=== PATIENT | female | born 1935 | race Two or more races ===

== ENCOUNTER 2020-05-25 11:41 | Outpatient (CLI) | payer OTHER | END 2020-05-25 18:02 | disposition home or self-care (01) | LOC: PPH VACUNA 11:41 | PROVIDERS: ATTEND Emergency Medicine Pediatric Emergency Medicine | DX: Z23 Encounter for immunization (principal) ==

== ENCOUNTER 2020-06-15 10:12 | Outpatient (CLI) | payer OTHER | END 2020-06-15 15:00 | disposition home or self-care (01) | LOC: PPH VACUNA 10:12 | PROVIDERS: ATTEND Emergency Medicine Pediatric Emergency Medicine | DX: Z23 Encounter for immunization (principal) ==

== ENCOUNTER 2020-08-30 10:06 | Outpatient (CLI) | payer OTHER | END 2020-08-30 10:12 | disposition home or self-care (01) | LOC: NUCLEAR 10:06 | PROVIDERS: ATTEND Internal Medicine Cardiovascular Disease | DX: I25.10 Atherosclerotic heart disease of native coronary artery without angina pectoris (principal); R07.2 Precordial pain; R01.1 Cardiac murmur, unspecified; I11.9 Hypertensive heart disease without heart failure; E03.9 Hypothyroidism, unspecified ==

== ENCOUNTER 2021-08-03 08:45 | Outpatient (CLI) | payer OTHER | END 2021-08-03 09:00 | disposition home or self-care (01) | LOC: SONOGRAMA 08:45 | PROVIDERS: ATTEND Internal Medicine Cardiovascular Disease | DX: K57.90 Diverticulosis of intestine, part unspecified, without perforation or abscess without bleeding (principal); K21.9 Gastro-esophageal reflux disease without esophagitis; K58.0 Irritable bowel syndrome with diarrhea ==

== ENCOUNTER 2022-01-23 09:20 | Outpatient (CLI) | payer OTHER | END 2022-01-23 09:22 | disposition home or self-care (01) | LOC: NUCLEAR 09:20 | PROVIDERS: ATTEND Internal Medicine Cardiovascular Disease | DX: I35.9 Nonrheumatic aortic valve disorder, unspecified (principal); I11.9 Hypertensive heart disease without heart failure; E03.9 Hypothyroidism, unspecified ==

== ENCOUNTER 2023-12-31 07:16 | Outpatient (CLI) | payer OTHER | END 2023-12-31 07:17 | disposition home or self-care (01) | LOC: NUCLEAR 07:16 | PROVIDERS: ATTEND Internal Medicine Cardiovascular Disease | DX: I35.0 Nonrheumatic aortic (valve) stenosis (principal); I11.9 Hypertensive heart disease without heart failure; R00.2 Palpitations | CPT/HCPCS: 78452; 93017; A9500; J0153 ==